=== PATIENT | female | born 1975 | race Caucasian/White ===

== ENCOUNTER 2018-08-07 12:52 | Outpatient (CLI) | payer BC ==
[2018-08-07] VITALS (19 sets, daily range): BP systolic 116–151; BP diastolic 68–104
== END 2018-08-07 23:59 | disposition home or self-care (01) ==
LOC: CARD DIAG 12:52
PROVIDERS: ATTEND Internal Medicine Interventional Cardiology
DX: I10 Essential (primary) hypertension (principal); F17.200 Nicotine dependence, unspecified, uncomplicated
CPT/HCPCS: 93660

== ENCOUNTER 2020-10-20 09:27 | Outpatient (CLI) | payer BC ==
[2020-10-20] VITALS (22 sets, daily range): BP systolic 115–144; BP diastolic 73–107
== END 2020-10-20 23:59 | disposition home or self-care (01) ==
LOC: CARD DIAG 09:27
PROVIDERS: ATTEND Psychiatry & Neurology Neurology
DX: I95.9 Hypotension, unspecified (principal)
CPT/HCPCS: 93660